=== PATIENT | female | born 1955 | race African-American/Black ===

== ENCOUNTER 2018-02-17 20:29 | Inpatient (IN) | payer MEDICARE, MEDICAID ==
[~2018-02-17] VITALS: Ht 157.5 cm; Wt 46.3 kg
[~2018-02-17 20:29] MED LIST: CARV3.1242 PO; COMBIV; CYPR4TAB43 PO; FURO40TA5 PO; LEVO100T9 PO; LISI10TA5 PO; LOVA20TA2 PO; POTA10TA11 PO; SPIR1TAB4 PO; SYN150 PO
[2018-02-17 21:24] LABS: BASOPHILS % 0.7 % (0.0-2.0); EOSINOPHILS % 1.3 % (0.0-5.0); HEMATOCRIT. 34.9 % (36.0-48.0); HEMOGLOBIN. 11.7 g/dL (12.0-16.0); LYMPHOCYTES % 43.2 % (20.0-50.0); MEAN CORPUSCULAR HEMOGLOBIN 35.8 pg (28.0-32.0); MEAN CORPUSCULAR VOLUME 106.6 fL (81.0-99.0); MEAN PLATELET VOLUME 10.2 fl (7.4-10.4); MONOCYTES % 7.8 % (2.0-8.0); PLATELET 160 x1000/uL (130-400); RED BLOOD CELL COUNT 3.27 mill/uL (4.2-5.4)
[2018-02-17 21:27] LABS: CHLORIDE 106 mEq/L (98-107)
[2018-02-17] MEDS ORDERED: NITROGLYCERIN 0.4MG TABLET SL SL PRN ×2 (21:45→22:15)
[2018-02-17] MEDS ORDERED: ASPIRIN 81MG TABLET PO ONE (21:45)
[2018-02-17] MEDS ORDERED: FUROSEMIDE 40MG/4ML VIAL IV ONE (21:45)
[2018-02-17] MEDS ORDERED: ACETAMINOPHEN 325MG TABLET PO PRN (22:15)
[2018-02-17] MEDS ORDERED: DIPHENHYDRAMINE 50MG/ML VIAL IV PRN (22:15)
[2018-02-17] MEDS ORDERED: IPRATROPIUM/ALBUTEROL 0.5-3(2.5)MG/3ML NEB INH PRN (22:15)
[2018-02-17] MEDS ORDERED: NA PHOS,M-B/NA PHOS,DI-BA ENEMA 118ML PR PRN (22:15)
[2018-02-17] MEDS ORDERED: TRAMADOL 50MG TABLET PO PRN (22:15)
[2018-02-17] MEDS ORDERED: DOCUSATE SODIUM 100MG CAPSULE PO PRN (22:15)
[2018-02-17] MEDS ORDERED: ONDANSETRON HCL 4MG/2ML INJ IV PRN (22:15)
[2018-02-17] MEDS ORDERED: MAGNESIUM/ALUMINUM HYDROXIDE/SIMETHICONE 30ML UDC PO PRN (22:15)
[2018-02-17] MEDS ORDERED: LORAZEPAM 0.5MG TABLET PO PRN (22:15)
[2018-02-17] MEDS ORDERED: ZOLPIDEM TARTRATE 5MG TABLET PO PRN (22:15)
[2018-02-17] MEDS ORDERED: CLONIDINE 0.1MG TABLET PO PRN (22:15)
[2018-02-17 23:11] VITALS: BP 110/66
[2018-02-17 23:41] LABS: VITAMIN B12 SERUM >2000 pg/mL pg/mL (211-911)
[2018-02-18 02:23] LABS: *AMPHETAMINES SCREEN URINE NEGATIVE (NEGATIVE)
[2018-02-18 02:24] LABS: *BARBITURATES SCREEN URINE NEGATIVE (NEGATIVE); *BENZODIAZEPINES SCREEN URINE NEGATIVE (NEGATIVE); *COCAINE SCREEN URINE NEGATIVE (NEGATIVE); METHADONE URINE SCREEN NEGATIVE (NEGATIVE); OPIATES URINE SCREEN NEGATIVE (NEGATIVE)
[2018-02-18 02:25] LABS: CANNABINOID URINE SCREEN PRESUMTIVE POSITIVE (NEGATIVE); PHENCYCLIDINE URINE SCREEN NEGATIVE (NEGATIVE)
[2018-02-18 04:00] VITALS: BP 114/73
[2018-02-18] MEDS: LEVOTHYROXINE SODIUM 112MCG TABLET PO SCH (06:37)
[2018-02-18] MEDS: CARVEDILOL 3.125 MG TABLET PO SCH ×2 (06:37→17:17)
[2018-02-18 08:00] VITALS: BP 114/72
[2018-02-18 08:40] LABS: CREATINE KINASE 61 IU/L (26-192)
[2018-02-18 08:41] LABS: CREATINE KINASE MB FRACTION < 1.0 ng/mL (0.5-3.6)
[2018-02-18] MEDS ORDERED: FAMOTIDINE 20MG TABLET PO SCH (09:00)
[2018-02-18] MEDS: FAMOTIDINE 20MG TABLET PO SCH (09:11)
[2018-02-18] MEDS: ASPIRIN 325MG EC TABLET PO SCH (09:12)
[2018-02-18] MEDS: FUROSEMIDE 40MG/4ML VIAL IVP SCH ×2 (09:12→20:47)
[2018-02-18] MEDS: SPIRONOLACTONE 25MG TABLET PO SCH ×2 (09:12→20:47)
[2018-02-18] MEDS: CLOPIDOGREL 75MG TABLET PO SCH (09:12)
[2018-02-18] MEDS: LISINOPRIL 2.5MG TABLET PO SCH ×2 (09:13→20:47)
[2018-02-18] MEDS: ENOXAPARIN 40MG/0.4ML SYR SUBCUT SCH (09:14)
[2018-02-18 12:00] VITALS: BP 90/54
[2018-02-18] MEDS ORDERED: NICOTINE 21MG PATCH TD NR (12:45)
[2018-02-18] MEDS: AZITHROMYCIN 500 MG TABLET PO SCH (13:57)
[2018-02-18] MEDS: MORPHINE SULFATE 4 MG/ML CPJ (NOT FOR IM USE) IV PRN (14:10)
[2018-02-18 16:00] VITALS: BP 91/52
[2018-02-18 16:59] LABS: CREATINE KINASE 63 IU/L (26-192)
[2018-02-18 17:02] LABS: CREATINE KINASE MB FRACTION < 1.0 ng/mL (0.5-3.6)
[2018-02-18 20:16] VITALS: BP 105/61
[2018-02-18] MEDS: GUAIFENESIN 200MG/10ML SUGAR FREE UDC PO PRN (20:47)
[2018-02-18] MEDS: IPRATROPIUM/ALBUTEROL 0.5-3(2.5)MG/3ML NEB HHN SCH (21:43)
[2018-02-19 00:24] VITALS: BP 91/82
[2018-02-19 04:19] VITALS: BP 105/66
[2018-02-19] MEDS: IPRATROPIUM/ALBUTEROL 0.5-3(2.5)MG/3ML NEB HHN SCH ×4 (04:41→21:53)
[2018-02-19] MEDS: CARVEDILOL 3.125 MG TABLET PO SCH ×2 (05:56→17:42)
[2018-02-19] MEDS: LEVOTHYROXINE SODIUM 112MCG TABLET PO SCH (05:56)
[2018-02-19 06:00] LABS: CHLORIDE 99 mEq/L (98-107)
[2018-02-19 08:00] VITALS: BP 92/53
[2018-02-19] MEDS: LISINOPRIL 2.5MG TABLET PO SCH ×2 (09:00→21:00)
[2018-02-19] MEDS: NICOTINE 21MG PATCH TD SCH (09:29)
[2018-02-19] MEDS: CLOPIDOGREL 75MG TABLET PO SCH (09:31)
[2018-02-19] MEDS: AZITHROMYCIN 500 MG TABLET PO SCH (09:31)
[2018-02-19] MEDS: FAMOTIDINE 20MG TABLET PO SCH (09:31)
[2018-02-19] MEDS: FUROSEMIDE 40MG/4ML VIAL IVP SCH (09:31)
[2018-02-19] MEDS: ASPIRIN 325MG EC TABLET PO SCH (09:31)
[2018-02-19] MEDS: SPIRONOLACTONE 25MG TABLET PO SCH (09:31)
[2018-02-19] MEDS: ENOXAPARIN 40MG/0.4ML SYR SUBCUT SCH (09:32)
[2018-02-19 12:00] VITALS: BP 95/53
[2018-02-19 16:00] VITALS: BP 115/67
[2018-02-19 20:00] VITALS: BP 106/81
[2018-02-19] MEDS: GUAIFENESIN 200MG/10ML SUGAR FREE UDC PO PRN (20:58)
[2018-02-20] VITALS: BP 96/69
[2018-02-20] MEDS: IPRATROPIUM/ALBUTEROL 0.5-3(2.5)MG/3ML NEB HHN SCH ×4 (01:56→20:36)
[2018-02-20 04:00] VITALS: BP 96/55
[2018-02-20] MEDS: CARVEDILOL 3.125 MG TABLET PO SCH ×2 (05:25→17:29)
[2018-02-20] MEDS: LEVOTHYROXINE SODIUM 112MCG TABLET PO SCH (06:16)
[2018-02-20 08:00] VITALS: BP 102/66
[2018-02-20] MEDS: LISINOPRIL 2.5MG TABLET PO SCH ×2 (09:00→21:00)
[2018-02-20] MEDS: FUROSEMIDE 40MG/4ML VIAL IVP SCH (09:04)
[2018-02-20] MEDS: ASPIRIN 325MG EC TABLET PO SCH (09:05)
[2018-02-20] MEDS: ENOXAPARIN 40MG/0.4ML SYR SUBCUT SCH (09:05)
[2018-02-20] MEDS: AZITHROMYCIN 500 MG TABLET PO SCH (09:05)
[2018-02-20] MEDS: SPIRONOLACTONE 25MG TABLET PO SCH (09:05)
[2018-02-20] MEDS: CLOPIDOGREL 75MG TABLET PO SCH (09:05)
[2018-02-20] MEDS: FAMOTIDINE 20MG TABLET PO SCH (09:05)
[2018-02-20] MEDS: NICOTINE 21MG PATCH TD SCH (09:06)
[2018-02-20] MEDS ORDERED: POTASSIUM CHLORIDE 20MEQ TABLET SR PO NR (11:15)
[2018-02-20 12:00] VITALS: BP 110/74
[2018-02-20] MEDS: MORPHINE SULFATE 4 MG/ML CPJ (NOT FOR IM USE) IV PRN (12:54)
[2018-02-20 16:00] VITALS: BP 91/73
[2018-02-20 20:00] VITALS: BP 107/75
[2018-02-21] VITALS: BP 104/65
[2018-02-21] MEDS: IPRATROPIUM/ALBUTEROL 0.5-3(2.5)MG/3ML NEB HHN SCH ×4 (01:52→20:21)
[2018-02-21 04:00] VITALS: BP 103/61
[2018-02-21] MEDS: CARVEDILOL 3.125 MG TABLET PO SCH ×2 (06:00→18:00)
[2018-02-21] MEDS: LEVOTHYROXINE SODIUM 112MCG TABLET PO SCH (06:39)
[2018-02-21 08:00] VITALS: BP 102/62
[2018-02-21] MEDS: POTASSIUM CHLORIDE 20MEQ TABLET SR PO SCH (08:47)
[2018-02-21] MEDS: CLOPIDOGREL 75MG TABLET PO SCH (08:47)
[2018-02-21] MEDS: NICOTINE 21MG PATCH TD SCH (08:48)
[2018-02-21] MEDS: FAMOTIDINE 20MG TABLET PO SCH (08:48)
[2018-02-21] MEDS: AZITHROMYCIN 500 MG TABLET PO SCH (08:48)
[2018-02-21] MEDS: SPIRONOLACTONE 25MG TABLET PO SCH (08:48)
[2018-02-21] MEDS: ENOXAPARIN 40MG/0.4ML SYR SUBCUT SCH (08:48)
[2018-02-21] MEDS: ASPIRIN 325MG EC TABLET PO SCH (08:48)
[2018-02-21] MEDS: LISINOPRIL 2.5MG TABLET PO SCH ×2 (08:49→20:44)
[2018-02-21] MEDS: FUROSEMIDE 40MG/4ML VIAL IVP SCH (08:49)
[2018-02-21 12:00] VITALS: BP 127/87
[2018-02-21] MEDS: MORPHINE SULFATE 4 MG/ML CPJ (NOT FOR IM USE) IV PRN (12:45)
[2018-02-21 16:00] VITALS: BP 102/67
[2018-02-21 20:00] VITALS: BP_SYST 103; BP_SYST 95; BP_DIAS 60; BP_DIAS 68
[2018-02-22] VITALS: BP 108/73
[2018-02-22] MEDS: IPRATROPIUM/ALBUTEROL 0.5-3(2.5)MG/3ML NEB HHN SCH ×3 (03:29→14:12)
[2018-02-22 04:00] VITALS: BP 93/68
[2018-02-22] MEDS: CARVEDILOL 3.125 MG TABLET PO SCH (05:38)
[2018-02-22] MEDS: LEVOTHYROXINE SODIUM 112MCG TABLET PO SCH (06:51)
[2018-02-22 08:44] VITALS: BP 98/61
[2018-02-22] MEDS: CLOPIDOGREL 75MG TABLET PO SCH (08:46)
[2018-02-22] MEDS: ENOXAPARIN 40MG/0.4ML SYR SUBCUT SCH (08:46)
[2018-02-22] MEDS: FUROSEMIDE 40MG/4ML VIAL IVP SCH (08:46)
[2018-02-22] MEDS: FAMOTIDINE 20MG TABLET PO SCH (08:47)
[2018-02-22] MEDS: SPIRONOLACTONE 25MG TABLET PO SCH (08:47)
[2018-02-22] MEDS: POTASSIUM CHLORIDE 20MEQ TABLET SR PO SCH (08:47)
[2018-02-22] MEDS: AZITHROMYCIN 500 MG TABLET PO SCH (08:47)
[2018-02-22] MEDS: ASPIRIN 325MG EC TABLET PO SCH (08:47)
[2018-02-22] MEDS: NICOTINE 21MG PATCH TD SCH (08:48)
[2018-02-22] MEDS: LISINOPRIL 2.5MG TABLET PO SCH (08:48)
[2018-02-22 14:59] VITALS: BP 117/85
== END 2018-02-22 15:50 | disposition home health service (06) | DRG 291 ==
LOC: ER 20:29 → 5WST 21:49 → EDBEDREQ 21:52 → EDBEDREQTM 21:52 → ENRESERV 22:01 → SUPCPDRO 22:06 → 5WST 02-18 01:43
PROVIDERS: ADMIT Internal Medicine; ATTEND Internal Medicine
DX: I11.0 Hypertensive heart disease with heart failure (principal); J96.00 Acute respiratory failure, unspecified whether with hypoxia or hypercapnia; J44.1 Chronic obstructive pulmonary disease with (acute) exacerbation; I50.43 Acute on chronic combined systolic (congestive) and diastolic (congestive) heart failure; I42.9 Cardiomyopathy, unspecified; F17.210 Nicotine dependence, cigarettes, uncomplicated; D63.8 Anemia in other chronic diseases classified elsewhere; E83.51 Hypocalcemia; E89.0 Postprocedural hypothyroidism; E87.6 Hypokalemia; I25.10 Atherosclerotic heart disease of native coronary artery without angina pectoris; J06.9 Acute upper respiratory infection, unspecified; Z79.899 Other long term (current) drug therapy; Z83.3 Family history of diabetes mellitus; Z95.5 Presence of coronary angioplasty implant and graft; Z95.810 Presence of automatic (implantable) cardiac defibrillator; Z71.6 Tobacco abuse counseling; Z80.9 Family history of malignant neoplasm, unspecified; Z90.721 Acquired absence of ovaries, unilateral
CPT/HCPCS: 36415; 71045; 80053; 80061; 80305; 82550; 82553; 82607; 82746; 83036; 83540; 83550; 83735; 83880; 84443; 84484; 85025; 87804; 93005; 93970; 94640; 96374; 97116; 97162; 97166; 97535; 99285; J1650; J1940; J2270; J2405; J7620

== ENCOUNTER 2018-11-13 13:20 | Emergency (ER) | payer MEDICARE, MEDICAID ==
[~2018-11-13] VITALS: Ht 157.5 cm; Wt 52.0 kg
[~2018-11-13 13:20] MED LIST changes: -FURO40TA5 PO
[2018-11-13] MEDS ORDERED: HYDROCODONE/ACETAMINOPHEN 5/325MG TABLET PO ONE (17:45)
[2018-11-13 17:48] VITALS: BP 113/79
== END 2018-11-13 18:43 | disposition home or self-care (01) ==
LOC: ER 17:02
DX: K02.9 Dental caries, unspecified (principal); I11.0 Hypertensive heart disease with heart failure; I50.9 Heart failure, unspecified; I48.91 Unspecified atrial fibrillation; J44.9 Chronic obstructive pulmonary disease, unspecified; Z79.899 Other long term (current) drug therapy; Z90.710 Acquired absence of both cervix and uterus; Z98.890 Other specified postprocedural states; J45.909 Unspecified asthma, uncomplicated
CPT/HCPCS: 99283

== ENCOUNTER 2019-10-04 13:53 | Inpatient (IN) | payer MEDICARE, MEDICAID ==
[~2019-10-04] VITALS: Ht 154.9 cm; Wt 46.3 kg
[2019-10-04] MEDS ORDERED: IPRATROPIUM BROMIDE (0.02%) 0.5MG/2.5ML NEB HHN STA (14:14)
[2019-10-04] MEDS ORDERED: ALBUTEROL (0.083%) 2.5MG/3ML NEB HHN STA (14:14)
[2019-10-04] MEDS ORDERED: FUROSEMIDE 40MG/4ML VIAL IV ONE (14:15)
[2019-10-04 14:41] LABS: BASOPHILS % 0.6 % (0.0-2.0); EOSINOPHILS % 1.4 % (0.0-5.0); HEMATOCRIT. 34.1 % (36.0-48.0); HEMOGLOBIN. 11.4 g/dL (12.0-16.0); LYMPHOCYTES % 18.5 % (20.0-50.0); MEAN CORPUSCULAR HEMOGLOBIN 35.7 pg (28.0-32.0); MEAN PLATELET VOLUME 10.7 fl (7.4-10.4); MONOCYTES % 12.9 % (2.0-8.0); NEUTROPHILS % 66.6 % (40.0-76.0); PLATELET 318 x1000/uL (130-400); RED BLOOD CELL COUNT 3.19 mill/uL (4.2-5.4); RED CELL DISTRIBUTION WIDTH 15.7 % (11.6-14.6)
[2019-10-04 14:43] LABS: CHLORIDE 101 mEq/L (98-107)
[2019-10-04] MEDS ORDERED: MORPHINE SULFATE 4 MG/ML CPJ (NOT FOR IM USE) IV ONE (15:30)
[2019-10-04] MEDS ORDERED: ONDANSETRON HCL 4MG/2ML INJ IV ONE (15:30)
[2019-10-04] MEDS ORDERED: ASPIRIN 81MG TABLET PO ONE (16:30)
[2019-10-04] MEDS ORDERED: IPRATROPIUM/ALBUTEROL 0.5-3(2.5)MG/3ML NEB HHN PRN (21:30)
[2019-10-04] MEDS ORDERED: LORAZEPAM 2MG/ML CPJ IV PRN (23:15)
[2019-10-04] MEDS ORDERED: HYDROCODONE/ACETAMINOPHEN 5/325MG TABLET PO PRN (23:15)
[2019-10-04] MEDS ORDERED: CLONIDINE 0.1MG TABLET PO PRN (23:15)
[2019-10-04] MEDS ORDERED: ACETAMINOPHEN 650MG/20.3ML UDC GT PRN (23:15)
[2019-10-04] MEDS ORDERED: DOCUSATE SODIUM 100MG CAPSULE PO PRN (23:15)
[2019-10-05] VITALS (7 sets, daily range): BP systolic 91–119; BP diastolic 47–74
[2019-10-05] MEDS: THIAMINE HCL 100MG TABLET PO SCH ×2 (02:57→08:47)
[2019-10-05] MEDS: MORPHINE SULFATE 2 MG/ML CPJ (NOT FOR IM USE) IV PRN ×4 (03:03→21:39)
[2019-10-05] MEDS ORDERED: CYAN50003 MT (05:19)
[2019-10-05] MEDS ORDERED: ESCI5TAB MT (05:19)
[2019-10-05] MEDS ORDERED: METO25TA6 MT (05:19)
[2019-10-05] MEDS ORDERED: SPIR25TA6 MT (05:19)
[2019-10-05] MEDS ORDERED: ASPI-1158 MT (05:19)
[2019-10-05] MEDS ORDERED: TRAM50TA3 MT (05:22)
[2019-10-05] MEDS ORDERED: ATOR-2 MT (05:22)
[2019-10-05] MEDS ORDERED: MEGE40TA5 GT (05:28)
[2019-10-05] MEDS ORDERED: LEVO100T9 MT (05:28)
[2019-10-05] MEDS ORDERED: CLOP75TA33 MT (05:28)
[2019-10-05 06:44] LABS: BASOPHILS % 0.7 % (0.0-2.0); EOSINOPHILS % 2.1 % (0.0-5.0); HEMATOCRIT. 29.5 % (36.0-48.0); HEMOGLOBIN. 9.9 g/dL (12.0-16.0); LYMPHOCYTES % 20.8 % (20.0-50.0); MEAN CORPUSCULAR HEMOGLOBIN 35.8 pg (28.0-32.0); MEAN CORPUSCULAR VOLUME 106.1 fL (81.0-99.0); MEAN PLATELET VOLUME 10.3 fl (7.4-10.4); MONOCYTES % 10.7 % (2.0-8.0); NEUTROPHILS % 65.7 % (40.0-76.0); PLATELET 268 x1000/uL (130-400); RED BLOOD CELL COUNT 2.78 mill/uL (4.2-5.4); RED CELL DISTRIBUTION WIDTH 15.5 % (11.6-14.6)
[2019-10-05 07:08] LABS: CHLORIDE 100 mEq/L (98-107)
[2019-10-05 07:33] LABS: CREATINE KINASE 41 IU/L (26-192)
[2019-10-05 07:34] LABS: CREATINE KINASE MB FRACTION < 1.0 ng/mL (0.5-3.6)
[2019-10-05] MEDS: FUROSEMIDE 40MG/4ML VIAL IV SCH ×2 (08:47→16:34)
[2019-10-05] MEDS: ENOXAPARIN 30MG/0.3ML SYR SUBCUT SCH (08:47)
[2019-10-05] MEDS: FOLIC ACID 1MG TABLET PO SCH (08:48)
[2019-10-05] MEDS: MAGNESIUM OXIDE 400MG TABLET PO SCH ×2 (11:59→16:34)
[2019-10-05] MEDS ORDERED: MAGNESIUM 2 G PREMIX 50 ML IV NR (13:00)
[2019-10-05] MEDS: IPRATROPIUM/ALBUTEROL 0.5-3(2.5)MG/3ML NEB NEB PRN (16:13)
[2019-10-05 16:34] LABS: CREATINE KINASE 37 IU/L (26-192)
[2019-10-05 16:35] LABS: CREATINE KINASE MB FRACTION < 1.0 ng/mL (0.5-3.6)
[2019-10-05] MEDS: ONDANSETRON HCL 4MG/2ML INJ IV PRN (21:09)
[2019-10-05 23:09] LABS: CLARITY URINE CLEAR (CLEAR); COLOR URINE YELLOW (YELLOW); KETONES URINE NEGATIVE (NEGATIVE); LEUKOCYTE ESTERASE URINE NEGATIVE (NEGATIVE); NITRITE URINE NEGATIVE (NEGATIVE); OCCULT BLOOD URINE NEGATIVE (NEGATIVE); PH URINE 5.5 (4.5-8.0); PROTEIN URINE NEGATIVE (NEGATIVE); SPECIFIC GRAVITY URINE 1.012 (1.005-1.030); UROBILINOGEN URINE 0.2 E.U./dL (0.2-1.0)
[2019-10-05 23:24] LABS: *AMPHETAMINES SCREEN URINE NEGATIVE (NEGATIVE); *BARBITURATES SCREEN URINE NEGATIVE (NEGATIVE); *BENZODIAZEPINES SCREEN URINE NEGATIVE (NEGATIVE); *COCAINE SCREEN URINE NEGATIVE (NEGATIVE); METHADONE URINE SCREEN NEGATIVE (NEGATIVE)
[2019-10-05 23:26] LABS: CANNABINOID URINE SCREEN PRESUMTIVE POSITIVE (NEGATIVE); OPIATES URINE SCREEN PRESUMTIVE POSITIVE (NEGATIVE); PHENCYCLIDINE URINE SCREEN NEGATIVE (NEGATIVE)
[2019-10-06] VITALS: BP 110/55
[2019-10-06 04:00] VITALS: BP 108/58
[2019-10-06 06:51] LABS: EOSINOPHILS % 2.9 % (0.0-5.0); HEMATOCRIT. 30.4 % (36.0-48.0); HEMOGLOBIN. 10.2 g/dL (12.0-16.0); LYMPHOCYTES % 24.7 % (20.0-50.0); MEAN CORPUSCULAR VOLUME 104.7 fL (81.0-99.0); MEAN PLATELET VOLUME 10.4 fl (7.4-10.4); MONOCYTES % 11.4 % (2.0-8.0); PLATELET 278 x1000/uL (130-400); RED CELL DISTRIBUTION WIDTH 15.4 % (11.6-14.6)
[2019-10-06] MEDS ORDERED: NON FORMULARY PATIENT HOME MED XX SCH (07:45)
[2019-10-06 08:00] VITALS: BP 103/47
[2019-10-06] MEDS: FUROSEMIDE 40MG/4ML VIAL IV SCH ×2 (09:00→10:58)
[2019-10-06] MEDS: FOLIC ACID 1MG TABLET PO SCH (09:25)
[2019-10-06] MEDS: ENOXAPARIN 30MG/0.3ML SYR SUBCUT SCH (09:25)
[2019-10-06] MEDS: MAGNESIUM OXIDE 400MG TABLET PO SCH ×2 (09:25→17:06)
[2019-10-06] MEDS: THIAMINE HCL 100MG TABLET PO SCH (09:25)
[2019-10-06] MEDS: ONDANSETRON HCL 4MG/2ML INJ IV PRN ×2 (09:25→23:01)
[2019-10-06] MEDS: SACUBITRIL/VALSARTAN 24/26 TAB PO SCH ×2 (09:25→20:40)
[2019-10-06] MEDS: MORPHINE SULFATE 2 MG/ML CPJ (NOT FOR IM USE) IV PRN (11:44)
[2019-10-06] MEDS: IPRATROPIUM/ALBUTEROL 0.5-3(2.5)MG/3ML NEB NEB PRN ×4 (11:50→23:35)
[2019-10-06 12:00] VITALS: BP 129/60
[2019-10-06 16:00] VITALS: BP 98/55
[2019-10-06 20:00] VITALS: BP 100/65
[2019-10-07 01:00] VITALS: BP 102/56
[2019-10-07] MEDS: MORPHINE SULFATE 2 MG/ML CPJ (NOT FOR IM USE) IV PRN (01:53)
[2019-10-07 04:00] VITALS: BP 95/54
[2019-10-07] MEDS: IPRATROPIUM/ALBUTEROL 0.5-3(2.5)MG/3ML NEB NEB PRN ×2 (05:16→09:28)
[2019-10-07 07:08] LABS: EOSINOPHILS % 2.6 % (0.0-5.0); HEMATOCRIT. 29.3 % (36.0-48.0); HEMOGLOBIN. 9.9 g/dL (12.0-16.0); LYMPHOCYTES % 27.4 % (20.0-50.0); MEAN CORPUSCULAR HEMOGLOBIN 35.4 pg (28.0-32.0); MEAN CORPUSCULAR VOLUME 105.1 fL (81.0-99.0); MEAN PLATELET VOLUME 9.9 fl (7.4-10.4); MONOCYTES % 11.5 % (2.0-8.0); NEUTROPHILS % 57.5 % (40.0-76.0); PLATELET 263 x1000/uL (130-400); RED BLOOD CELL COUNT 2.79 mill/uL (4.2-5.4); RED CELL DISTRIBUTION WIDTH 15.2 % (11.6-14.6)
[2019-10-07 08:00] VITALS: BP 97/64
[2019-10-07] MEDS: SACUBITRIL/VALSARTAN 24/26 TAB PO SCH (09:00)
[2019-10-07] MEDS: FOLIC ACID 1MG TABLET PO SCH (09:47)
[2019-10-07] MEDS: ENOXAPARIN 30MG/0.3ML SYR SUBCUT SCH (09:47)
[2019-10-07] MEDS: THIAMINE HCL 100MG TABLET PO SCH (09:47)
[2019-10-07] MEDS: MAGNESIUM OXIDE 400MG TABLET PO SCH (09:47)
[2019-10-07] MEDS: FUROSEMIDE 40MG/4ML VIAL IV SCH (09:48)
[2019-10-07 12:47] VITALS: BP 95/55
[2019-10-07 13:00] VITALS: BP 95/55
== END 2019-10-07 14:00 | disposition home or self-care (01) | DRG 291 ==
LOC: ER 13:53 → 6WST 14:36 → ENRESERV 21:53 → SUPCPDRO 23:01
PROVIDERS: ADMIT Internal Medicine Nephrology; ATTEND Internal Medicine Nephrology
DX: I13.0 Hypertensive heart and chronic kidney disease with heart failure and stage 1 through stage 4 chronic kidney disease, or unspecified chronic kidney disease (principal); I50.23 Acute on chronic systolic (congestive) heart failure; E44.0 Moderate protein-calorie malnutrition; E87.1 Hypo-osmolality and hyponatremia; N17.9 Acute kidney failure, unspecified; Z68.1 Body mass index [BMI] 19.9 or less, adult; I25.5 Ischemic cardiomyopathy; D63.8 Anemia in other chronic diseases classified elsewhere; E83.42 Hypomagnesemia; J44.9 Chronic obstructive pulmonary disease, unspecified; I25.10 Atherosclerotic heart disease of native coronary artery without angina pectoris; E78.5 Hyperlipidemia, unspecified; N18.9 Chronic kidney disease, unspecified; E89.0 Postprocedural hypothyroidism; Z79.899 Other long term (current) drug therapy; I25.2 Old myocardial infarction; Z87.891 Personal history of nicotine dependence; Z95.810 Presence of automatic (implantable) cardiac defibrillator; Z82.49 Family history of ischemic heart disease and other diseases of the circulatory system; Z82.3 Family history of stroke; Z95.5 Presence of coronary angioplasty implant and graft
CPT/HCPCS: 36415; 71045; 80048; 80053; 80305; 81003; 82550; 82553; 83735; 83880; 84484; 85025; 93005; 93306; 94640; 96374; 97112; 97116; 97162; 99291; J1650; J1940; J2270; J2405; J3475